=== PATIENT | male | born 1970 | race Caucasian/White ===

== ENCOUNTER 2020-08-23 08:56 | Outpatient (CLI) | payer OTHER, SELFPAY ==
--- NOTE | 2020-08-23 | FL_ITS ---
WS: [id number] ESOPHAGRAM WITH FLUOROSCOPY HISTORY: DYSPHAGIA COMPARISON: None available. FLUOROSCOPY TIME: 2.1 minutes. Molding Technician radiograph: None. Esophagus and swallowing function: Patient swallowed the barium mixture with no difficulty. No high-g rade cervical stenosis identified. No aspiration identified. Only intermittently visualized is a sma ll esophageal web noted anterior and posterior at the C5 level. Does not cause limitation of the franny um or the barium tablet. Mild distal esophageal dysmotility. Gastroesophageal reflux: None. Hiatal hernia: Small reducible hiatal hernia. FL/NC barium swallow [id number] IMPRESSION: 1. No high-grade esophageal stenosis. 2. 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 3. Barium tablet swallowed without difficulty.
== END 2020-08-23 08:57 | disposition home or self-care (01) ==
LOC: RADWPI 09:02
PROVIDERS: PCP Physician Assistant Medical; Visit Provider Specialist
DX: R13.10 Dysphagia, unspecified (principal)
CPT/HCPCS: 74220

== ENCOUNTER → 2020-10-15 10:04 | Outpatient (BNVA) | payer OTHER, SELFPAY | PROVIDERS: PCP Physician Assistant Medical; Visit Provider Surgery | DX: R13.10 Dysphagia, unspecified (principal); Z11.52 Encounter for screening for COVID-19 | CPT/HCPCS: 87635 ==

== ENCOUNTER 2020-10-18 08:42 | Day surgery (SDC) | payer OTHER, SELFPAY ==
--- NOTE | 2020-10-18 09:19 | ANES.PREANE2 ---
Pre-Anesthetic Assessment Pre-Anesthetic Assessment: Height/Weight: Height 1.78 m Weight 109.316 kg Proposed Procedure: Operation Date: 10/18/20 10:10 Proposed Procedures p EGD Dilation W/ Balloon 51024 r13.10(Not Applicable) - Guido Henning MD Was Beta Lobito taken within 24 hours: N/A Social: Social History: No alcohol and No tobacco Exam: Pre-Anes Outpt Exam: alert, oriented x 3, clear to auscultation bilaterally and regular rate & rhythm Airway: Submandibular: WNL Cervical ROM: WNL MP: 2 History/ROS: No significant complaints Pulmonary: Pulmonary: None reported CV/HEM: CV/HEM: None reported : : None reported Hepatic: Hepatic: None reported GI: GI: GERD Comments: Hx of esophageal stricture s/p dilation Musc/skel: Musc/skel: None reported Neuropsych: Neuropsych: None reported Anesthetic Plan: ASA status: 2 PFSH Anesthesia PFSH: Medical History (Updated 10/09/20 @ 15:52 by Guido Henning MD) GERD (gastroesophageal reflux disease) Surgical History (Updated 10/09/20 @ 15:52 by Guido Henning MD) History of hernia repair Family History (Updated 10/09/20 @ 15:50 by KIKE Mendez) Denies family history of Anesthesia complication Bleeding disorder Social History (Updated 10/09/20 @ 15:50 by KIKE Mendez) Smoking and tobacco status: never smoked Alcohol intake: current Alcohol intake frequency: holidays/special occasions only Data Anesthesia Cardiac Studies: No Data to Display
[2020-10-18 09:57] VITALS: BP 145/93; PULSE 72; RESP 18; TEMP 36.8; O2SAT 98
--- NOTE | 2020-10-18 09:57 | W.PM.OPSUD ---
Surgery/Procedure H&P Update DATE OF PROCEDURE: October 18, 2020 DATE H&P PERFORMED: 10/09/20 H&P UPDATE INFORMATION: I have reviewed H&P completed within last 30 days, I have examined patient prior to procedure and No changes to prior documentation PREOP DIAGNOSIS: upper gi symptoms PLANNED PROCEDURE: Operation Date: 10/18/20 10:10 Proposed Procedures p EGD Dilation W/ Balloon 75270 r13.10(Not Applicable) - Guido Henning MD
[2020-10-18] MEDS: sodium chloride 0.9% 1,000 ML 30 ML IV (10:09)
[2020-10-18 11:28] VITALS: BP 130/69; PULSE 74; RESP 16; TEMP 36.1; O2SAT 94
[2020-10-18 11:45] VITALS: BP 130/62; PULSE 63; RESP 16; O2SAT 97
--- NOTE | 2020-10-18 14:10 | ANE.PACU2 ---
Inpatient post-anesthesia follow up: Airway intact: Yes Vital signs: Temperature 97 F Pulse Rate 63 Respiratory Rate 16 Blood Pressure 130/62 Pulse Oximetry 97 Oxygen Delivery Me thod Room Air Oxygen Flow Rate Fraction of Inspir ed Oxygen Hydration adequate: Yes Nausea and vomiting: No Pain level: 1 Mental status: Baseline
== END 2020-10-18 12:04 | disposition home or self-care (01) ==
PROVIDERS: PCP Physician Assistant Medical; Visit Provider Surgery
DX: R13.10 Dysphagia, unspecified (principal); K21.9 Gastro-esophageal reflux disease without esophagitis; K22.2 Esophageal obstruction; K44.9 Diaphragmatic hernia without obstruction or gangrene
CPT/HCPCS: 43239; 43249; 88305; 96360; 96361; J2704; J7030

== ENCOUNTER 2021-02-09 14:09 | Day surgery (SDC) | payer OTHER, SELFPAY ==
[2021-02-09] VITALS (8 sets, daily range): BP systolic 112–160; BP diastolic 47–96; PULSE 70–105; RESP 16–18; TEMP 36.3–36.7; O2SAT 95–99; BMI 32.7
--- NOTE | 2021-02-09 15:01 | ED_ITS ---
HPI - General Adult General: Chief complaint: General Medical Stated complaint: THROAT PAIN Time Seen by Provider: 02/09/21 14:49 History of Present Illness: HPI narrative: The patient is a 50-year-old male sent to the ER from [place] with difficulty swallowing. He says he had a normal breakfast and felt like it stuck in his throat. He was evaluated and treated at [place] with no improvement after glucagon. He has had multiple dilations in the past as recently as October [address] Henning and is transferred here for EGD. He is breathing well and calm and comfortable. He says he is ready for the EGD. Dr. Henning is ready to take him as well. Associated symptoms: Deny chest pain, confusion, dyspnea, headache(s), rash or palpitations Review of Systems General: Reports: 10 or more systems reviewed and unremarkable except in HPI and below Const: Denies: fatigue Eyes: Denies: change in vision, blurry vision or eye redness ENMT: Denies: throat pain, swelling of lips/tongue, ear or mastoid pain or nasal congestion Card: Denies: chest pain, palpitations, irregular heart rhythm, edema, dyspnea on exertion or orthopnea Resp: Denies: dyspnea, productive cough or non-productive cough GI: Reports: other (Foreign body sensation in throat.); Denies: abdominal pain, diarrhea or GI cramping : Denies: flank pain, urinary frequency or urinary urgency Musc: Denies: neck pain, back pain, extremity pain, joint pain, joint redness, limited range of motion or muscle weakness Skin/Breast: Denies: rash, pruritus, erythema, skin pain or skin tenderness Neuro: Denies: headache(s), numbness in extremities, weakness in extremities, sensory changes, difficulty walking, dizziness, confusion or Slurred speech present Psych: Denies: anxiety or depression Endo: Denies: polyuria All/Imm: Denies: urticaria, throat swelling or tongue swelling PFSH ED PFSH: Medical History (Updated 02/09/21 @ 15:06 by Filiberto Melissa MD) GERD (gastroesophageal reflux disease) Surgical History (Updated 10/18/20 @ 11:28 by Guido Henning MD) H/O esophagogastroduodenoscopy (10/18/20) with dilation History of hernia repair Family History (Updated 10/09/20 @ 15:50 by KIKE Mendez) Denies family history of Anesthesia complication Bleeding disorder Social History (Updated 10/09/20 @ 15:50 by KIKE Mendez) Smoking and tobacco status: never smoked Alcohol intake: current Alcohol intake frequency: holidays/special occasions only Physical Exam Const: COMMON NORMALS: no acute distress, average body habitus, patient oriented x3, no limitations, healthy appearing, alert and well nourished GENERAL APPEARANCE: cooperative, comfortable, well kempt and well developed ORIENTATION/CONSCIOUSNESS: Yes awake, Yes oriented to person, Yes oriented to place and Yes oriented to time HENMT: COMMON NORMALS: normocephalic, external ears normal and Normal external nose present HEAD & SCALP: normal to inspection and normocephalic NOSE: Normal external nose present EXTERNAL EAR: Yes external ears normal MOUTH: Normal oral and palatal mucosa present THROAT: posterior oropharynx normal Eye: COMMON NORMALS: Equal, round and reactive pupils present and EOMs intact bilaterally GENERAL EYE: appearance normal, both eyes and all related structures PUPIL: Yes Equal, round and reactive pupils present Neck/C-Spine: COMMON NORMALS: full ROM, no lymphadenopathy, no meningeal signs and no JVD GENERAL: Yes normal visual inspection Lymph: LYMPHATIC: no lymphadenopathy noted Chest: COMMONS NORMALS: normal inspection of the chest and normal palpation of entire chest wall Resp: COMMON NORMALS: normal respiratory effort, No retractions, No use of accessory muscles, clear to auscultation bilaterally and percussion normal EFFORT & INSPECTION: Yes able to speak in complete sentences AUSCULTATION: clear to auscultation bilaterally PERCUSSION: percussion normal Cardio: COMMON NORMALS: no JVD, regular rate, regular rhythm, S1 normal heart sound present, S2 normal heart sound present and Peripheral pulses 2+ throughout RATE: regular rate RHYTHM: regular rhythm HEART SOUNDS: S1 normal heart sound present and S2 normal heart sound present PERIPHERAL PULSES: Peripheral pulses 2+ throughout GI: COMMON NORMALS: Normal to inspection, nondistended, normoactive bowel sounds present, Soft to palpation, non-tender and no masses INSPECTION: Yes normal to inspection PALPATION: Yes Soft to palpation : COMMON NORMALS: Yes no CVA tenderness BLADDER/KIDNEY EXAM: Yes no CVA tenderness Back/Pelvis: COMMON NORMALS: no CVA tenderness, thoracic and lumbar spine nor mal to inspection, no thoracic nor lumbar tenderness and thoraco-lumbar ROM normal Extremity: COMMON NORMALS: normal to inspection, full ROM, capillary refill normal, no joint enlargement and no pedal edema GENERAL: Yes normal exam except as noted Neuro: COMMON NORMALS: patient oriented x3, CN's II-XII intact bilaterally, moves all extremities, no focal motor deficits, no sensory deficits noted and gait normal SENSORIUM/ORIENTATION: Yes alert, Yes oriented to person, Yes oriented to place and Yes oriented to time MENINGEAL SIGNS: Yes no meningeal signs Psych: COMMON NORMALS: mental status grossly normal, Normal thought process present, cooperative, normal affect and speech normal APPEARANCE: Yes well kempt ATTITUDE: Yes calm SPEECH: Yes normal speech THOUGHT PROCESS: Normal thought process present Skin: COMMON NORMALS: no rashes or lesions noted GENERAL SKIN EXAM: no rashes or lesions noted Course Vital Signs: Vital signs: Vital Signs Temperature 98.0 F 02/09/21 14:35 Pulse Rate 78 02/09/21 14:35 Respiratory Rate 16 02/09/21 14:35 Blood Pressure 160/96 02/09/21 14:35 Pulse Oximetry 97 02/09/21 14:35 MDM - General Adult MDM Narrative: Medical decision making narrative: The patient has been medically screened and is ready for transfer to the GI lab. Will be discharged from the ER and admitted there under Dr. Henning Discharge Plan Discharge Patient Disposition: Admitted As Inpatient Clinical Impression: Esophageal stricture Condition: Stable Coding Level of Care Code ED Satellite Dish Installer for Lexi Gregory
[2021-02-09 15:05] LABS: Basophils # 0.1 10^3/uL (0.0-0.1); Basophils % 0.6 %; Eosinophils # 0.2 10^3/uL (0.0-0.8); Eosinophils % 1.3 %; Hematocrit 49.3 % (42.0-52.0); Hemoglobin 16.6 g/dL (11.7-16.6); Lymphocytes # 1.9 10^3/uL (0.8-4.8); Lymphocytes % 14.8 %; Mean Corpuscular HGB Conc 33.7 g/dL (30.0-36.0); Mean Corpuscular Hemoglobin 29.9 pg (28.0-34.0); Mean Corpuscular Volume 88.7 fL (80-94); Mean Platelet Volume 10.1 fL (7.4-10.4); Monocytes # 0.8 10^3/uL (0.2-0.9); Monocytes % 6.2 %; Neutrophils # 9.53 10^3/uL (1.8-7.7); Neutrophils % 76.1 %; Nucleated Red Blood Cells % 0 %; Platelet Count 240 10^3/cmm (130-400); Red Blood Count 5.56 10^6/uL (4.1-5.3); Red Cell Distribution Width 12.7 % (12.1-15.1); White Blood Count 12.5 10^3/uL (4.0-10.0)
[2021-02-09] MEDS: sodium chloride 0.9% 1,000 ML 30 ML IV (15:05)
--- NOTE | 2021-02-09 15:14 | PM.HP ---
Providers/Chief Complaint Primary Care Provider: Yovany Pizarro Chief Complaint: THROAT PAIN History of Present Illness Jae Christian is a 50 year old male who was transferred from [place] with food bolus. Conservative measures fail at the outside facility and he was therefore transferred here for an EGD. I previously performed an EGD with dilation on 10/18/2020. The distal esophageal stricture was serially dilated up to 16.5 mm. Patient states that he is having ham cheese and bread this morning and since then he has been unable to swallow. He was given glucagon which did not help. He denies any chest pain or abdominal pain Review of Systems General: Reports: 10 or more systems reviewed and unremarkable except in HPI and below Medications/Allergies Home Medications Medication Instructions Recorded Confirmed Last Taken Type pantoprazole 40 mg tablet,delayed 40 mg PO DAILY 10/09/20 02/09/21 1 Month Ago History release ~01/10/21 sertraline 100 mg tablet 100 mg PO DAILY 10/09/20 02/09/21 02/08/21 History Allergies Allergy/AdvReac Type Severity Reaction Status Date / Time Sulfa (Sulfonamide Allergy Rash Verified 02/09/21 15:04 Antibiotics) PFSH Acute PFSH: Medical History (Updated 02/09/21 @ 15:06 by Filiberto Melissa MD) GERD (gastroesophageal reflux disease) Surgical History (Updated 10/18/20 @ 11:28 by Guido Henning MD) H/O esophagogastroduodenoscopy (10/18/20) with dilation History of hernia repair Family History (Updated 10/09/20 @ 15:50 by KIKE Mendez) Denies family history of Anesthesia complication Bleeding disorder Social History (Updated 10/09/20 @ 15:50 by KIKE Mendez) Smoking and tobacco status: never smoked Alcohol intake: current Alcohol intake frequency: holidays/special occasions only Vitals/I&O/Wt Last Vital Signs Temp 98.0 F 02/09/21 14:35 Pulse 78 02/09/21 14:35 Resp 16 02/09/21 14:35 BP 160/96 02/09/21 14:35 Pulse Ox 97 02/09/21 14:35 Weight last 48 hrs Weight 228 lb Physical Exam Narrative: EXAM NARRATIVE: HEENT: Normocephalic Eye: Sclera /conjunctiva normal Respiratory and chest: Bilateral clear breath sounds on auscultation Cardiovascular: Normal S1 and S2 heart sounds Abdomen: Soft to palpation Neurological: Oriented to place person and time Skin: Intact, no lesions appreciated on gross exam Data : 02/09/21 14:56 02/09/21 14:56 A&P Assessment and plan (1) Esophageal stricture: 50-year-old male with history of esophageal dilation in the past for distal esophageal stricture who presents with esophageal obstruction due to food bolus Plan for EGD with biopsy for this and disimpaction of food bolus under general anesthesia Procedure, risks, benefits and alternatives have been discussed with the patient who wishes to proceed with surgery. Status: Acute Attestations Medical Necessity Statement*: Esophageal obstruction due to food bolus, going home today Coding Level of Care Code Acute Occupational Medicine Physician for Lexi Gregory Diagnoses Esophageal stricture K22.2
--- NOTE | 2021-02-09 15:18 | P.ANESASSM_ITS ---
Pre-Anesthetic Assessment Pre-Anesthetic Assessment: Height/Weight: Height 1.78 m Weight 103.419 kg Temp Pulse Resp BP Pulse Ox 98.0 F 78 16 160/96 97 02/09/21 14:35 02/09/21 14:35 02/09/21 14:35 02/09/21 14:35 02/09/21 14:35 Preop Diagnosis: Food bolus Proposed Procedure: Operation Date: 02/09/21 14:35 Proposed Procedures s Foreign Body Removal(Not Applicable) - Guido Henning MD p EGD(Not Applicable) - Guido Henning MD Was Beta Lobito taken within 24 hours: N/A Was Clonidine taken within 24 hours: N/A Social: Social History: Tobacco and No alcohol Exam: Pre-Anes Outpt Exam: alert, oriented x 3, clear to auscultation bilaterally and regular rate & rhythm Airway: Submandibular: WNL Cervical ROM: WNL MP: 2 Dentition: Full GI: GI: GERD Neuropsych: Neuropsych: Depression Anesthetic Plan: ASA status: 2 Anesthesia: General Risk of > 500 ml blood loss (7ml/kg in children): No PFSH Anesthesia PFSH: Medical History (Updated 02/09/21 @ 15:06 by Filiberto Melissa MD) GERD (gastroesophageal reflux disease) Surgical History (Updated 10/18/20 @ 11:28 by Guido Henning MD) H/O esophagogastroduodenoscopy (10/18/20) with dilation History of hernia repair Family History (Updated 10/09/20 @ 15:50 by KIKE Mendez) Denies family history of Anesthesia complication Bleeding disorder Social History (Updated 10/09/20 @ 15:50 by KIKE Mendez) Smoking and tobacco status: never smoked Alcohol intake: current Alcohol intake frequency: holidays/special occasions only Data Anesthesia CBC & Chem 7: 02/09/21 14:56 02/09/21 14:56 Other Labs: Laboratory Results - last 48 hr 02/09/21 14:56 WBC 12.5 H RBC 5.56 H Hgb 16.6 Hct 49.3 MCV 88.7 MCH 29.9 MCHC 33.7 RDW 12.7 Plt Count 240 MPV 10.1 Neut % (Auto) 76.1 Lymph % (Auto) 14.8 [place] % (Auto) 6.2 Eos % (Auto) 1.3 Baso % (Auto) 0.6 Neut # (Auto) 9.53 H Lymph # (Auto) 1.9 [place] # (Auto) 0.8 Eos # (Auto) 0.2 Baso # (Auto) 0.1 Nucleated RBC % (auto) 0 Nucleated RBCs # 0.0 Cardiac Studies: No Data to Display
[2021-02-09 15:24] LABS: Alanine Aminotransferase 16 U/L (0-41); Albumin Level 4.3 g/dL (3.5-5.2); Alkaline Phosphatase 83 IU/L (40-130); Anion Gap 14.1 (5-19); Aspartate Amino Transferase 18 U/L (0-40); Blood Urea Nitrogen 11 mg/dL (6-20); Carbon Dioxide 25 mmol/L (22-29); Chloride 102 mmol/L (98-107); Globulin 3.3 g/dL (1.3-4.6); Glomerular Filtration Rate 120.4 mL/min (90-130); Glucose 78 mg/dL (65-115); Lipase 14 U/L (13-60); Osmolality Calculated 282 mOsm/kg (285-295); Potassium 4.1 mmol/L (3.5-5.1); Sodium 137 mmol/L (136-145); Total Bilirubin 0.6 mg/dL (0.15-1.2); Total Protein 7.6 g/dL (6.6-8.7)
--- NOTE | 2021-02-09 16:08 | ANE.PACU2 ---
Inpatient post-anesthesia follow up: Airway intact: Yes Vital signs: Temperature 98.0 F Pulse Rate [Right Radial] 78 Pulse Rate 102 Respiratory Rate 17 Blood Pressure [Le ft Arm] 160/96 Blood Pressure 112/47 Pulse Oximetry 96 Oxygen Delivery Me thod Room Air Oxygen Flow Rate 8 Fraction of Inspir ed Oxygen Hydration adequate: Yes Nausea and vomiting: No Pain level: 1 Mental status: Baseline
== END 2021-02-09 16:55 | disposition home or self-care (01) ==
LOC: ER 14:56 → GILAB 14:57
PROVIDERS: Emergency Provider Family Medicine; PCP Physician Assistant Medical; Visit Provider Surgery
PROC: 0DJ08ZZ Inspection of Upper Intestinal Tract, Via Natural or Artificial Opening Endoscopic (ICD-10-PCS; CPT 43235; 2021-02-09 14:35)
DX: K22.2 Esophageal obstruction (principal); K21.9 Gastro-esophageal reflux disease without esophagitis; K20.0 Eosinophilic esophagitis
CPT/HCPCS: 43239; 43247; 80053; 83690; 85025; 86850; 86900; 88305; 96360; J0330; J1100; J2370; J2405; J2704; J3490; J7030

== ENCOUNTER → 2024-06-03 09:20 | Outpatient (BNVA) | payer OTHER, SELFPAY | PROVIDERS: PCP Physician Assistant Medical; Visit Provider Nurse Practitioner Family | DX: F41.9 Anxiety disorder, unspecified; F32.A Depression, unspecified; Z79.899 Other long term (current) drug therapy; Z13.6 Encounter for screening for cardiovascular disorders | CPT/HCPCS: 80053; 80061; 81003; 83036; 84443; 85025 ==